=== PATIENT | female | born 1940 | race Caucasian/White ===

== ENCOUNTER 2018-10-11 07:17 | Day surgery (SDC) | payer MEDICARE, BC ==
[~2018-10-11] VITALS: Ht 160 cm; Wt 68.4 kg
[~2018-10-11 07:17] MED LIST: ACET1TAB64 PO; CALC1CAP8 PO; COLE1TAB2 PO; LACT1CAP40 PO; LATA2.5D3 EACHEYE; LOPE2CAP94 PO; LOSA1TAB22 PO; MULT-516 PO; RANI150T4 PO; VITA150T PO
[2018-10-11] MEDS ORDERED: BUPIVACAINE/PF-EPI 0.5% 1:200K ONE (08:08)
[2018-10-11] MEDS ORDERED: ISOSULFAN BLUE 10 MG/ML, 5ML IV ONE (08:08)
[2018-10-11] MEDS ORDERED: LIDOCAINE 1%, 20ML ONE (09:30)
[2018-10-11] MEDS ORDERED: SODIUM BICARBONATE 4.0%, 5ML ONE (09:30)
[2018-10-11] MEDS ORDERED: SCOPOLAMINE PATCH, 1.5MG PATCH.TD72 TD ONE ×2 (10:00→10:08)
[2018-10-11] MEDS ORDERED: GABAPENTIN 300 MG CAPSULE PO ONE (10:00)
[2018-10-11] MEDS ORDERED: ACETAMINOPHEN 500 MG TABLET PO ONE (10:00)
[2018-10-11] MEDS ORDERED: ONDANSETRON 2MG/ML, 2ML IVPush ONE (10:00)
[2018-10-11] MEDS ORDERED: LACTATED RINGERS 1,000 ML IV SCH (10:01)
[2018-10-11 10:03] VITALS: BP 104/71
[2018-10-11] MEDS ORDERED: ACETAMINOPHEN 500 MG TABLET ONE (10:07)
[2018-10-11] MEDS ORDERED: ONDANSETRON 2MG/ML, 2ML ONE ×3 (10:08→14:29)
[2018-10-11] MEDS ORDERED: GABAPENTIN 300 MG CAPSULE ONE (10:08)
[2018-10-11] MEDS ORDERED: FENTANYL PF 100 MCG/2ML ONE ×2 (12:55→13:44)
[2018-10-11] MEDS ORDERED: DEXAMETHASONE 4 MG/ML, 1ML ONE (12:56)
[2018-10-11] MEDS ORDERED: FENTANYL PF 100 MCG/2ML IV PRN (13:30)
[2018-10-11] MEDS ORDERED: MEPERIDINE/PF 25MG/0.5ML IVPush PRN (13:30)
[2018-10-11] MEDS ORDERED: ONDANSETRON ODT 8 MG PO PRN (13:30)
[2018-10-11] MEDS ORDERED: LABETALOL 5MG/ML, 20ML IV PRN (13:30)
[2018-10-11] MEDS ORDERED: HALOPERIDOL 5 MG/ML IV PRN (13:30)
[2018-10-11] MEDS ORDERED: PROMETHAZINE 25 MG/ML, 1ML IV PRN (13:30)
[2018-10-11] MEDS ORDERED: ALBUTEROL SULFATE 2.5 MG/3 ML NPPB PRN (13:30)
[2018-10-11] MEDS ORDERED: HYDROmorphone 2 MG/ML, 1ML IVPush PRN (13:30)
[2018-10-11] MEDS ORDERED: ONDANSETRON 2MG/ML, 2ML IV PRN (13:30)
[2018-10-11] MEDS ORDERED: OXYcodone 5 MG/5 ML ORAL.SOL UDC PO PRN (13:30)
[2018-10-11] MEDS ORDERED: PROMETHAZINE 12.5 MG SUPP PR PRN (13:30)
[2018-10-11] MEDS ORDERED: DIAZEPAM 5 MG/ML, 2ML IVPush PRN (13:30)
[2018-10-11] MEDS ORDERED: EPHEDRINE 50 MG/ML, 1ML IVPush PRN (13:30)
[2018-10-11] MEDS ORDERED: hydrALAzine 20 MG/ML, 1ML IV PRN (13:30)
[2018-10-11] MEDS ORDERED: MORPHINE SULFATE 4 MG/ML, 1ML IVPush PRN (13:30)
[2018-10-11] MEDS ORDERED: MIDAZOLAM 1 MG/ML, 2ML IV PRN (13:30)
[2018-10-11] MEDS ORDERED: PROPOFOL 10 MG/ML, 20ML ONE (14:29)
[2018-10-11] MEDS ORDERED: OXYcodone 5 MG/5 ML ORAL.SOL UDC ONE (15:07)
[2018-10-11] MEDS ORDERED: CEFAZOLIN 1,000 MG ONE (16:04)
== END 2018-10-11 18:46 | disposition home or self-care (01) ==
LOC: CFH 07:17 → EDSTATUS 11:30 → OUT 18:46
PROVIDERS: ATTEND Surgery
DX: C50.111 Malignant neoplasm of central portion of right female breast (principal); R59.1 Generalized enlarged lymph nodes; I10 Essential (primary) hypertension; K21.9 Gastro-esophageal reflux disease without esophagitis; Z79.899 Other long term (current) drug therapy; Z98.51 Tubal ligation status; Z90.710 Acquired absence of both cervix and uterus; Z98.890 Other specified postprocedural states; Z87.891 Personal history of nicotine dependence; Z72.89 Other problems related to lifestyle; Z86.010 Personal history of colon polyps; Z80.3 Family history of malignant neoplasm of breast
CPT/HCPCS: 19281; 19301; 38525; 38792; 76098; 88307; 88329; A9541; C1729; J0690; J1100; J2405; J2704; J3010; J3490; J7120; 19285

== ENCOUNTER → 2019-01-02 | Outpatient (CLI) | payer MEDICARE, BC | END | disposition home or self-care (01) | LOC: ROC 08:01 → EDSTATUS 11-04 14:44 | PROVIDERS: ATTEND Radiology Radiation Oncology | DX: Z08 Encounter for follow-up examination after completed treatment for malignant neoplasm (principal); C50.111 Malignant neoplasm of central portion of right female breast | CPT/HCPCS: G0463 ==

== ENCOUNTER → 2019-01-03 | Outpatient (CLI) | payer MEDICARE, BC | END | disposition home or self-care (01) | LOC: CFH 10:10 | PROVIDERS: ATTEND Internal Medicine Hematology & Oncology | DX: Z13.820 Encounter for screening for osteoporosis (principal); M85.88 Other specified disorders of bone density and structure, other site; C50.811 Malignant neoplasm of overlapping sites of right female breast | CPT/HCPCS: 77080 ==

== ENCOUNTER 2019-06-16 10:55 | Outpatient (CLI) | payer MEDICARE, BC | END 2019-06-16 23:59 | disposition home or self-care (01) | LOC: ROC 10:55 | PROVIDERS: ATTEND Radiology Radiation Oncology | DX: C50.111 Malignant neoplasm of central portion of right female breast (principal) | CPT/HCPCS: G0463 ==

== ENCOUNTER 2021-02-15 10:02 | Outpatient (CLI) | payer MEDICARE, BC ==
[~2021-02-15 10:02] MED LIST changes: -LATA2.5D3 EACHEYE; +LATA2.5D4 EACHEYE; +LOPE-114 PO; -LOPE2CAP94 PO
== END 2021-02-15 23:59 | disposition home or self-care (01) ==
LOC: CFH 10:02
PROVIDERS: ATTEND Internal Medicine Hematology & Oncology
DX: Z12.31 Encounter for screening mammogram for malignant neoplasm of breast (principal); C50.811 Malignant neoplasm of overlapping sites of right female breast; M85.88 Other specified disorders of bone density and structure, other site
CPT/HCPCS: 77063; 77067; 77080

== ENCOUNTER 2021-02-25 08:07 | Outpatient (CLI) | payer MEDICARE, BC | END 2021-02-25 23:59 | disposition home or self-care (01) | LOC: ROC 08:07 | PROVIDERS: ATTEND Radiology Radiation Oncology | DX: Z08 Encounter for follow-up examination after completed treatment for malignant neoplasm (principal); Z85.3 Personal history of malignant neoplasm of breast | CPT/HCPCS: G0463 ==